=== PATIENT | female | born 1970 | race Caucasian/White ===

== ENCOUNTER 2017-09-17 07:49 | Observation (INO) ==
[2017-09-17 08:07] LABS: Basophils % 0.2 %; Eosinophils # 0.1 K/mcL (0.0-0.6); Eosinophils % 0.7 %; Hematocrit 41.1 % (35.3-44.9); Hemoglobin 14.3 g/dL (11.5-15.4); Immature Granulocytes % 0.5 % (0-4); Lymphocytes # 2.5 K/mcL (0.6-4.6); Lymphocytes % 14.8 %; Mean Corpuscular HGB Conc 34.8 g/dL (31.6-35.5); Mean Corpuscular Hemoglobin 30.6 pg (28.0-33.3); Mean Corpuscular Volume 87.8 fL (83.0-100.0); Mean Platelet Volume 10.7 fL (9.4-12.4); Monocytes # 0.8 K/mcL (0.0-1.3); Monocytes % 4.6 %; Neutrophils # 13.4 K/mcL (1.6-8.9); Platelet Count 253 K/mcL (140-400); Red Blood Count 4.68 M/mcL (3.82-4.97); Red Cell Distribution Width 11.9 % (11.5-14.5); Segmented Neutrophils % 79.2 %
[2017-09-17] MEDS ORDERED: 0.9 % Sodium Chloride 1,000 ML IVC ONE (08:08)
[2017-09-17] MEDS ORDERED: Ondansetron 4 MG/2 ML VIAL IVP ONE (08:08)
[2017-09-17] MEDS ORDERED: *HR* Morphine 2 MG/ML SYRINGE IVP ONE ×3 (08:08→12:01)
--- NOTE | 2017-09-17 08:11 | Emergency Department Note ---
Disposition Clinical Impression: Acute appendicitis Qualifiers: Acute appendicitis type: unspecified acute appendicitis type Qualified Code(s) : K35.80 - Unspecified acute appendicitis Disposition: Admitted As Inpatient Condition: Fair Referrals: María Ramsey DO [Primary Care Provider] - Forms: ED Satisfaction Letter, Work/School Release Time of Disposition: 09:33 Abdominal Pain HPI - General Chief Complaint: ED Abdominal Pain Stated Complaint: RLQ pain Time Seen by Provider: 09/17/17 07:50 Source: patient Mode of arrival: ambulatory Limitations: no limitations Nursing Notes Reviewed: Yes Vital Signs Reviewed: Yes - History of Present Illness HPI Narrative: Nontoxic-appearing 46-year-old female presents for evaluation of right lower quadrant abdominal pain and nausea that began yesterday. He she states the pain has been constant ever since. She denies any vomiting, fever, diarrhea, constipation, urinary symptoms, hematemesis, or hematochezia melena. She denies any known sick contacts or recent foreign travel. She denies any aggravating or alleviating factors for this pain. She states the pain is a constant ache. She states a surgical history that includes a total hysterectomy with bilateral salpingo-oophorectomy. Pt Subjective Complaint: abdominal pain Onset (ago): day(s) (Yesterday) Consistency: constant Location: RLQ Pain Severity: moderate Pain Scale: 5 Quality: aching Radiation: none Migration to: no migration Improves with: nothing Worsens with: nothing Associated symptoms: Reports: nausea. Denies: vomiting, diarrhea, fever, chills , constipation, dysuria, hematemesis, hematochezia, melena, hematuria Treatments prior to arrival: none - Related Data Home Medications Medication Instructions Recorded Confirmed No Known Home Drugs 09/17/17 09/17/17 Allergies Allergy/AdvReac Type Severity Reaction Status Date / Time Cefaclor [From Ceclor] Allergy Anaphylaxis Verified 09/17/17 07:51 meloxicam [From Mobic] Allergy Hives Verified 09/17/17 07:51 Tetracycline Allergy Hives Verified 09/17/17 07:51 All systems ED: reviewed and negative except as stated. Constitutional: Denies: fever, chills, weakness, weight change Eyes: Denies: eye pain, eye discharge, vision change ENT ED: Denies: ear pain, throat pain, dental pain, hearing loss, epistaxis, congestion, dysphagia Cardiovascular: Denies: chest pain, palpitations, dyspnea on exertion, edema, syncope Respiratory: Denies: cough, dyspnea, wheezes, hemoptysis, stridor Gastrointestinal: Reports: as per HPI, abdominal pain, nausea. Denies: vomiting , diarrhea, constipation, hematemesis, melena, hematochezia Genitourinary: Denies: dysuria, frequency, hematuria, discharge Musculoskeletal: Denies: back pain, neck pain, arthralgia, myalgia Integumentary: Denies: rash, abrasion, lesions Neurological: Denies: headache, weakness, numbness, paresthesias, confusion, abnormal gait, vertigo Psychiatric: Denies: anxiety, depression, suicidal thoughts, homicidal thoughts , auditory hallucinations, visual hallucinations Endocrine: Denies: fatigue Hematological/Lymphatic: Denies: easy bleeding, easy bruising Allergic/Immunologic: Denies: facial swelling, urticaria Abdominal Pain PMH - Past Medical History Medical history: Reports: diabetes Female Surgical History: Reports: hysterectomy, other Psychiatric history: Reports: no psych history - Social History Smoking status: Never smoker Alcohol use: Reports: occasionally Drug use: Reports: none Physical Exam - General Limitations: no limitations General appearance: alert, in no apparent distress - Head Head exam: atraumatic, normocephalic, normal inspection - Eye Eye exam: Present: normal appearance, PERRL, EOMI - ENT ENT exam: normal exam, normal oropharynx, mucous membranes moist - Neck Neck exam: Present: normal inspection, full ROM, trachea midline - Chest Chest inspection: Present: normal inspection, symmetric chest wall rise - Respiratory Respiratory exam: Present: normal lung sounds bilaterally. Absent: respiratory distress, wheezes, stridor, accessory muscle use, prolonged expiratory phase - Cardiovascular Cardiovascular exam: Present: regular rate, normal rhythm, normal heart sounds - Abdominal Exam Abdominal exam: Present: soft, tenderness, rebound, normal bowel sounds, Rovsing 's sign, tenderness at McBurney's Point. Absent: distention, guarding, rigidity , organomegaly, psoas sign, obturator sign, heel tap sign, Josue's sign Abdominal tenderness: Present: RLQ, moderate - Extremities Exam Extremities exam: Present: normal inspection, full ROM. Absent: tenderness, pedal edema - Neurological Exam Neurological exam: Present: alert, oriented X3 - Psychiatric Psychiatric exam: Present: normal affect, normal mood - Skin Skin exam: Present: warm, dry, intact, normal color Course Course Narrative: I discussed this patient's case with Dr. Rose. Dr. Rose has had a face-to -face evaluation with the patient. 0925: I spoke with Dr. Devine, general surgeon quarry extraction worker. Dr. Devine will send his nurse practitioner to see the patient in the emergency department. He requests 500 mg of IV piggyback Flagyl and Levaquin. The patient will be admitted for surgical intervention. 1005: Nelia Fried CNP with [facility] has evaluated the patient. Patient will be admitted to the surgical service. Vital Signs Temperature 98.0 F 09/17/17 07:51 Pulse Rate 101 09/17/17 07:51 Respiratory Rate 18 09/17/17 07:51 Blood Pressure 136/87 09/17/17 07:51 O2 Sat by Pulse Oximetry 97 09/17/17 07:51 Temperature 98.0 F 09/17/17 07:51 Pulse Rate 84 09/17/17 09:38 Respiratory Rate 16 09/17/17 09:38 Blood Pressure 127/83 09/17/17 09:38 O2 Sat by Pulse Oximetry 98 09/17/17 09:38 Oxygen Delivery Oxygen Delivery Room Air Abdominal Pain - Medical Records Medical records reviewed: Yes I reviewed the patient's medical records. - Lab Data Lab results reviewed: Yes I reviewed the patient's lab results. Lab results narrative: Laboratory Last Values WBC 16.9 K/mcL (4.3-11.1) H 09/17/17 08:02 RBC 4.68 M/mcL (3.82-4.97) 09/17/17 08:02 Hgb 14.3 g/dL (11.5-15.4) 09/17/17 08:02 Hct 41.1 % (35.3-44.9) 09/17/17 08:02 MCV 87.8 fL (83.0-100.0) 09/17/17 08:02 MCH 30.6 pg (28.0-33.3) 09/17/17 08:02 MCHC 34.8 g/dL (31.6-35.5) 09/17/17 08:02 RDW 11.9 % (11.5-14.5) 09/17/17 08:02 Plt Count 253 K/mcL (140-400) 09/17/17 08:02 MPV 10.7 fL (9.4-12.4) 09/17/17 08:02 Immature Gran % 0.5 % (0-4) 09/17/17 08:02 Seg Neutrophils % 79.2 % 09/17/17 08:02 Lymphocytes % 14.8 % 09/17/17 08:02 Monocytes % 4.6 % 09/17/17 08:02 Eosinophils % 0.7 % 09/17/17 08:02 Basophils % 0.2 % 09/17/17 08:02 Neutrophils # 13.4 K/mcL (1.6-8.9) H 09/17/17 08:02 Lymphocytes # 2.5 K/mcL (0.6-4.6) 09/17/17 08:02 Monocytes # 0.8 K/mcL (0.0-1.3) 09/17/17 08:02 Eosinophils # 0.1 K/mcL (0.0-0.6) 09/17/17 08:02 Basophils # 0.0 K/mcL (0.0-0.2) 09/17/17 08:02 PT 11.0 Seconds (9.4-12.1) 09/17/17 09:36 INR 1.0 09/17/17 09:36 APTT 28.5 Seconds (26.0-36.0) 09/17/17 09:36 Sodium 137 mEq/L (136-145) 09/17/17 08:02 Potassium 4.1 mEq/L (3.5-4.5) 09/17/17 08:02 Chloride 103 mEq/L (98-109) 09/17/17 08:02 Carbon Dioxide 25 mEq/L (19-29) 09/17/17 08:02 BUN 11 mg/dL (7-20) 09/17/17 08:02 Creatinine 0.72 mg/dL (0.57-1.11) 09/17/17 08:02 Est GFR ( Amer) > 60 (> 60) 09/17/17 08:02 Est GFR (Non-Af Amer) > 60 (> 60) 09/17/17 08:02 BUN/Creatinine Ratio 15 (6-26) 09/17/17 08:02 Glucose 207 mg/dL (70-99) H 09/17/17 08:02 Calculated Osmolality 289 (280-300) 09/17/17 08:02 Lactic Acid 1.4 mmol/L (0.5-2.2) 09/17/17 08:02 Calcium 9.4 mg/dL (8.6-10.8) 09/17/17 08:02 Total Bilirubin 0.7 mg/dL (0.2-1.2) 09/17/17 08:02 Direct Bilirubin 0.3 mg/dL (0.0-0.5) 09/17/17 08:02 Indirect Bilirubin 0.4 mg/dL (0.0-1.2) 09/17/17 08:02 AST 17 Units/L (5-34) 09/17/17 08:02 ALT 33 Units/L (0-55) 09/17/17 08:02 Alkaline Phosphatase 56 Units/L (38-126) 09/17/17 08:02 Serum Total Protein 7.6 g/dL (6.0-8.3) 09/17/17 08:02 Albumin 3.9 g/dL (3.5-5.0) 09/17/17 08:02 Globulin 3.7 g/dL (2.4-3.5) H 09/17/17 08:02 Albumin/Globulin Ratio 1.1 (1.1-2.2) 09/17/17 08:02 Amylase 31 Units/L (25-125) 09/17/17 08:02 Lipase 30 Units/L (8-78) 09/17/17 08:02 Urine Color Yellow (Yellow) 09/17/17 08:09 Urine Clarity Clear (Clear) 09/17/17 08:09 Urine pH 7.0 pH Units (5.0-8.0) 09/17/17 08:09 Ur Specific [place] 1.012 (1.010-1.025) 09/17/17 08:09 Urine Protein Negative mg/dL (Neg-Trace) 09/17/17 08:09 Urine Glucose (UA) Normal mg/dL (Normal) 09/17/17 08:09 Urine Ketones Negative mg/dL (Negative) 09/17/17 08:09 Urine Blood Negative (Negative) 09/17/17 08:09 Urine Nitrite Negative (Negative) 09/17/17 08:09 Urine Bilirubin Negative (Negative) 09/17/17 08:09 Urine Urobilinogen Normal mg/dL (Normal) 09/17/17 08:09 Ur Leukocyte Esterase Negative (Negative) 09/17/17 08:09 Ur Culture Indicated? NO (NO) 09/17/17 08:09 Urine Test Negative (Negative) 09/17/17 08:09 Result diagrams: 09/17/17 08:02 09/17/17 08:02 Lab Results 09/17/17 09/17/17 09/17/17 Range/Units 08:02 08:02 08:02 WBC 16.9 H (4.3-11.1) K/mcL RBC 4.68 (3.82-4.97) M/mcL Hgb 14.3 (11.5-15.4) g/dL Hct 41.1 (35.3-44.9) % MCV 87.8 (83.0-100.0) fL MCH 30.6 (28.0-33.3) pg MCHC 34.8 (31.6-35.5) g/dL RDW 11.9 (11.5-14.5) % Plt Count 253 (140-400) K/mcL MPV 10.7 (9.4-12.4) fL Immature Gran % 0.5 (0-4) % Seg Neutrophils % 79.2 % Lymphocytes % 14.8 % Monocytes % 4.6 % Eosinophils % 0.7 % Basophils % 0.2 % Neutrophils # 13.4 H (1.6-8.9) K/mcL Lymphocytes # 2.5 (0.6-4.6) K/mcL Monocytes # 0.8 (0.0-1.3) K/mcL Eosinophils # 0.1 (0.0-0.6) K/mcL Basophils # 0.0 (0.0-0.2) K/mcL PT (9.4-12.1) Seconds INR APTT (26.0-36.0) Seconds Sodium 137 (136-145) mEq/L Potassium 4.1 (3.5-4.5) mEq/L Chloride 103 (98-109) mEq/L Carbon Dioxide 25 (19-29) mEq/L BUN 11 (7-20) mg/dL Creatinine 0.72 (0.57-1.11) mg/dL Est GFR ( Amer) > 60 (> 60) Est GFR (Non-Af Amer) > 60 (> 60) BUN/Creatinine Ratio 15 (6-26) Glucose 207 H (70-99) mg/dL Calculated Osmolality 289 (280-300) Lactic Acid 1.4 (0.5-2.2) mmol/L Calcium 9.4 (8.6-10.8) mg/dL Total Bilirubin 0.7 (0.2-1.2) mg/dL Direct Bilirubin 0.3 (0.0-0.5) mg/dL Indirect Bilirubin 0.4 (0.0-1.2) mg/dL AST 17 (5-34) Units/L ALT 33 (0-55) Units/L Alkaline Phosphatase 56 (38-126) Units/L Serum Total Protein 7.6 (6.0-8.3) g/dL Albumin 3.9 (3.5-5.0) g/dL Globulin 3.7 H (2.4-3.5) g/dL Albumin/Globulin Ratio 1.1 (1.1-2.2) Amylase 31 (25-125) Units/L Lipase 30 (8-78) Units/L Urine Color (Yellow) Urine Clarity (Clear) Urine pH (5.0-8.0) pH Units Ur Specific [place] (1.010-1.025) Urine Protein (Neg-Trace) mg/dL Urine Glucose (UA) (Normal) mg/dL Urine Ketones (Negative) mg/dL Urine Blood (Negative) Urine Nitrite (Negative) Urine Bilirubin (Negative) Urine Urobilinogen (Normal) mg/dL Ur Leukocyte Esterase (Negative) Ur Culture Indicated? (NO) Urine Test (Negative) 09/17/17 09/17/17 09/17/17 Range/Units 08:09 08:09 09:36 WBC (4.3-11.1) K/mcL RBC (3.82-4.97) M/mcL Hgb (11.5-15.4) g/dL Hct (35.3-44.9) % MCV (83.0-100.0) fL MCH (28.0-33.3) pg MCHC (31.6-35.5) g/dL RDW (11.5-14.5) % Plt Count (140-400) K/mcL MPV (9.4-12.4) fL Immature Gran % (0-4) % Seg Neutrophils % % Lymphocytes % % Monocytes % % Eosinophils % % Basophils % % Neutrophils # (1.6-8.9) K/mcL Lymphocytes # (0.6-4.6) K/mcL Monocytes # (0.0-1.3) K/mcL Eosinophils # (0.0-0.6) K/mcL Basophils # (0.0-0.2) K/mcL PT 11.0 (9.4-12.1) Seconds INR 1.0 APTT 28.5 (26.0-36.0) Seconds Sodium (136-145) mEq/L Potassium (3.5-4.5) mEq/L Chloride (98-109) mEq/L Carbon Dioxide (19-29) mEq/L BUN (7-20) mg/dL Creatinine (0.57-1.11) mg/dL Est GFR ( Amer) (> 60) Est GFR (Non-Af Amer) (> 60) BUN/Creatinine Ratio (6-26) Glucose (70-99) mg/dL Calculated Osmolality (280-300) Lactic Acid (0.5-2.2) mmol/L Calcium (8.6-10.8) mg/dL Total Bilirubin (0.2-1.2) mg/dL Direct Bilirubin (0.0-0.5) mg/dL Indirect Bilirubin (0.0-1.2) mg/dL AST (5-34) Units/L ALT (0-55) Units/L Alkaline Phosphatase (38-126) Units/L Serum Total Protein (6.0-8.3) g/dL Albumin (3.5-5.0) g/dL Globulin (2.4-3.5) g/dL Albumin/Globulin Ratio (1.1-2.2) Amylase (25-125) Units/L Lipase (8-78) Units/L Urine Color Yellow (Yellow) Urine Clarity Clear (Clear) Urine pH 7.0 (5.0-8.0) pH Units Ur Specific [place] 1.012 (1.010-1.025) Urine Protein Negative (Neg-Trace) mg/dL Urine Glucose (UA) Normal (Normal) mg/dL Urine Ketones Negative (Negative) mg/dL Urine Blood Negative (Negative) Urine Nitrite Negative (Negative) Urine Bilirubin Negative (Negative) Urine Urobilinogen Normal (Normal) mg/dL Ur Leukocyte Esterase Negative (Negative) Ur Culture Indicated? NO (NO) Urine Test Negative (Negative) - Radiology Data Radiology results reviewed: Yes I reviewed the patient's radiology results. Abdomen/Pelvis CT 09/17/17 08:03 IMPRESSION: Acute appendicitis. No evidence of drainable fluid collection, abscess or pneumoperitoneum. The results were called by Dr. Simón Ackerman MD to Chris Tracy on 09/17/2017 at 09:20. D/ / Simón Ackerman MD / Simón Ackerman MD Interpreting Provider: Simón Ackerman MD Attestation Statement - Attestation Attestation: I, Nilson Rose DO have provided [id number] time during the care of this patient. Detailed review the presentation, symptoms, medical history were discussed and reviewed with the mid-level provider Chris Tracy PA-C/SAS ANALYST. Medical intervention labs and imaging studies were reviewed in detail. See full documentation of physical exam and course of care in the mid-level provider's note. I agree with the determined course of care, medical intervention and disposition put forth by the mid-level provider. See below documentation for changes or alterations in documentation. 46-year-old female presents to emergency room with right lower quadrant abdominal pain that started approximately 2-3 weeks ago. Patient. Umbilical pain that went away without any issue. Yesterday afternoon she had acute onset of periumbilical pain is now migrated to the right lower quadrant or abdomen. She has had anorexia along with fevers and chills. Denies any trauma or injury. She does have point tenderness over the appendix in the right lower quadrant concerning for appendicitis. Labs do show a little white blood cell count CT confirms what appears to be an obstructed fecalith and the appendical apex with dilation distally. Patient will be consult surgery for possible surgical intervention. No other medical issues noted this time. Patient's labs otherwise unremarkable. Disposition will be admission to surgery for definitive management. Antibiotic regimen to be given at this point. Consultation placed to the on-call surgeon Dr. Devine. Recommendation for antibiotic at this point. They will, evaluate emergency room. See detailed documentation of physical exam, medical intervention, medical decision-making and disposition in the mid-level provider's note
[2017-09-17 08:16] LABS: Bilirubin,Urine Negative (Negative); Blood,Urine Negative (Negative); Clarity,Urine Clear (Clear); Color,Urine Yellow (Yellow); Glucose,Urine (UA) Normal (Normal); Ketones,Urine Negative (Negative); Leukocyte Esterase,Urine Negative (Negative); Nitrite,Urine Negative (Negative); Protein,Urine Negative (Neg-Trace); Specific Gravity,Urine 1.012 (1.010-1.025); Urobilinogen,Urine Normal (Normal)
[2017-09-17 08:22] LABS: Alanine Aminotransferase 33 Units/L (0-55); Albumin 3.9 g/dL (3.5-5.0); Albumin/Globulin Ratio 1.1 (1.1-2.2); Alkaline Phosphatase 56 Units/L (38-126); Amylase 31 Units/L (25-125); Aspartate Amino Transferase 17 Units/L (5-34); BUN/Creatinine Ratio 15 (6-26); Bilirubin,Direct 0.3 mg/dL (0.0-0.5); Bilirubin,Indirect 0.4 mg/dL (0.0-1.2); Bilirubin,Total 0.7 mg/dL (0.2-1.2); Blood Urea Nitrogen 11 mg/dL (7-20); Calcium 9.4 mg/dL (8.6-10.8); Carbon Dioxide 25 mEq/L (19-29); Chloride 103 mEq/L (98-109); Globulin 3.7 g/dL (2.4-3.5); Glucose 207 mg/dL (70-99); Lipase 30 Units/L (8-78); Osmolality,Calculated 289 (280-300); Potassium 4.1 mEq/L (3.5-4.5); Sodium 137 mEq/L (136-145); Total Protein 7.6 g/dL (6.0-8.3); eGFR For African Americans > 60 (> 60); eGFR For Non-African Americans > 60 (> 60)
[2017-09-17] MEDS ORDERED: Levofloxacin 500 MG/100 ML 500 MG/100 ML BAG IVPB ONE (09:28)
[2017-09-17] MEDS ORDERED: MetroNIDAZOLE 500 MG/100 ML 500 MG/100 ML BAG IVPB ONE (09:28)
[2017-09-17 09:54] LABS: Activated Partial Thrombo Time 28.5 Seconds (26.0-36.0)
--- NOTE | 2017-09-17 10:29 | General Surg History&Physical ---
<Nelia Fried - Last Filed: 09/17/17 10:25> Date of Encounter: 09/17/17 Time of Encounter: 09:45 Assessment and Plan (1) Acute appendicitis Current Visit: Yes Status: Acute The assessment and plan as outlined above was discussed with the patient and/or family members who expressed understanding and agreement. All questions were answered. Nothing by mouth IV fluids IV antibiotics- Levaquin and Flagyl given in the emergency department Supportive care and pain control Incentive spirometer every 1 hour while awake PPI therapy daily Ambulate hallways 3 times a day with assistance Risks, benefits, alternatives, expected outcomes have been reviewed with the patient she has agreed to proceed to the operating room with Dr. Devine in the next 24 hours for laparoscopic appendectomy- consent has been completed Qualifiers: Acute appendicitis type: with localized peritonitis Qualified Code(s): K35.3 - Acute appendicitis with localized peritonitis (2) DVT prophylaxis Current Visit: Yes Status: Acute The assessment and plan as outlined above was discussed with the patient and/or family members who expressed understanding and agreement. All questions were answered. Ambulate hallways 3 times a day with assistance EPCDs to bilateral lower extremities for DVT prophylaxis History of Present Illness Chief complaint: Abdominal pain HPI: Ms. De Paz is a 46 year old female who presented to the emergency department with complaints of abdominal pain which started at 2 PM yesterday. She states that the pain started suddenly while at work yesterday and was located in the berry-umbilical region. She states that the pain was constant and the severity did continue to progress. She states that she was unable to get any rest last night due to continued pain. The pain did migrate to the right lower quadrant at some point last night. She states that walking aggravates the pain. She states that nothing makes the pain better prior to coming to the hospital. The pain medication administered in the ED has helped to ease the pain now. She states that she did have pain similar to this 2 weeks ago but it did resolve after 6 hours and rest. She does have nausea but denies any vomiting. She denies any changes in bowel habits and states that her last bowel movement was yesterday. She typically has a bowel movement on a daily basis. She admits to chills but states she did not check her temperature. She denies any difficulty with urination. Denies any shortness of breath or chest pains. She does have a CAT scan which shows evidence of acute appendicitis with a fecalith. We have been asked to see and evaluate the patient for recommendations. She last had water to drink at 0530 this morning. She has not had anything to eat since 1830 last evening. 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[employer]) Current living situation: Home - Independent Activity Level: Independent ambulation - Family History Mother Living Status: Still Living Hx Family GI Disorders: Yes (gastroperesis (severe)) Father Living Status: Still Living Sister Living Status: Still Living Hx Family Cancer: Yes (breast cancer at age 49) Grandmother Living Status: Cause of : [place] Hx Family Cardiac Disorders: Yes (LA) Hx Family Cancer: Yes (breast cancer) Medications and Allergies No Known Home Drugs 09/17/17 [History] 3 Allergy/AdvReac Type Severity Reaction Status Date / Time Cefaclor [From Ceclor] Allergy Anaphylaxis Verified 09/17/17 07:51 meloxicam [From Mobic] Allergy Hives Verified 09/17/17 07:51 Tetracycline Allergy Hives Verified 09/17/17 07:51 Review of Systems All systems PM: reviewed and no additional remarkable complaints except as stated (in the HPI) All systems PM: A 10-system review of systems was performed and is negative for pertinent findings except as documented above in the HPI. General Surgery Exam Initial Vital Signs Temp Pulse Resp BP Pulse Ox 98.0 F 101 18 136/87 97 09/17/17 07:51 09/17/17 07:51 09/17/17 07:51 09/17/17 07:51 09/17/17 07:51 - General physical appearance well developed, well nourished, no distress, moderate pain - Eyes normal ocular movement - ENT normal mucosa, atraumatic, normocephalic - Neck trachea midline - Respiratory normal respiratory effort, clear to auscultation - Cardiovascular Cardiovascular exam: Present: RRR - Abdomen Abdomen general surgery: Present: bowel sounds present, soft, tender Abdominal Tenderness: Present: RLQ, suprapubic - Integumentary Integumentary general surgery: Present: warm and dry - Neurologic Present: CN 2-12 grossly intact - Psychiatric Psychiatric general surgery: Present: appropriate, oriented to person, oriented to place, oriented to time, speech is normal, memory intact Results - Labs 09/17/17 08:02 09/17/17 08:02 Abnormal lab results WBC 16.9 K/mcL (4.3-11.1) H 09/17/17 08:02 Neutrophils # 13.4 K/mcL (1.6-8.9) H 09/17/17 08:02 Glucose 207 mg/dL (70-99) H 09/17/17 08:02 Globulin 3.7 g/dL (2.4-3.5) H 09/17/17 08:02 All other labs normal. - Imaging CT scan - abdomen: report reviewed CT scan - pelvis: report reviewed Additional studies: Abdomen/Pelvis CT 09/17/17 08:03 IMPRESSION: Acute appendicitis. No evidence of drainable fluid collection, abscess or pneumoperitoneum. The results were called by Dr. Simón Ackerman MD to Chris Tracy on 09/17/2017 at 09:20. D/ / Simón Ackerman MD / Simón Ackerman MD Interpreting Provider: Simón Ackerman MD - Attending Attestation For this encounter, I have reviewed the [employer]KE [employer] or PA documentation, treatment plan, and medical decision making; and I have had face to face time with this patient. <Yash Devine - Last Filed: 09/17/17 12:18> Date of Encounter: 09/17/17 History of Present Illness HPI: Ms. De Paz is a 46 year old female Review of Systems All systems PM: A 10-system review of systems was performed and is negative for pertinent findings except as documented above in the HPI. General Surgery Exam Initial Vital Signs Temp Pulse Resp BP Pulse Ox 98.0 F 101 18 136/87 97 09/17/17 07:51 09/17/17 07:51 09/17/17 07:51 09/17/17 07:51 09/17/17 07:51 Results - Labs 09/17/17 08:02 09/17/17 08:02 Abnormal lab results WBC 16.9 K/mcL (4.3-11.1) H 09/17/17 08:02 Neutrophils # 13.4 K/mcL (1.6-8.9) H 09/17/17 08:02 Glucose 207 mg/dL (70-99) H 09/17/17 08:02 Globulin 3.7 g/dL (2.4-3.5) H 09/17/17 08:02 All other labs normal. - Attending Attestation I reviewed the above history and physical and agree with the above. Noted pain since yesterday; periumbilical and now RLQ. Pain on physical examination. Noted leukocytosis and CT scan showing acute appendicitis. Will plan on a laparoscopic appendectomy today. Discussed with the patient and family and they agree to the above plan.
[2017-09-17] MEDS ORDERED: Ondansetron 4 MG/2 ML VIAL IVP PRN ×3 (10:35→17:13)
[2017-09-17] MEDS ORDERED: Naloxone 0.4 MG/ML INJ IVP PRN ×2 (10:35→17:13)
[2017-09-17] MEDS ORDERED: *HR* OxyCODONE/APAP 5/325 TABLET PO PRN (10:38)
[2017-09-17] MEDS ORDERED: Acetaminophen 325 MG TABLET PO PRN ×2 (10:38→17:13)
[2017-09-17] MEDS ORDERED: *HR* HYDROmorphone (PF) 1 MG/ML SYRINGE IVP PRN (10:38)
[2017-09-17] MEDS ORDERED: 0.9 % Sodium Chloride 1,000 ML IVC SCH (10:45)
--- NOTE | 2017-09-17 14:32 | Anesthesia Evaluation PreOp ---
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: Denies Any Significant HX Other Medical History: Denies Any Significant HX, Diabetes Type II (Previous diagnosis, not currently, elevated glucose on BMP), Other (Obesity) Anesthesia History: No Prior Anesthetic Complications, Past Anesthesia (Hyst, other) : No Alcohol Use: occasionally Drug use: none Medications and Allergies No Known Home Drugs 09/17/17 [History] 3 Allergy/AdvReac Type Severity Reaction Status Date / Time Cefaclor [From Ceclor] Allergy Anaphylaxis Verified 09/17/17 07:51 meloxicam [From Mobic] Allergy Hives Verified 09/17/17 07:51 Tetracycline Allergy Hives Verified 09/17/17 07:51 - Meds/Allergy Pre-op Review Medications Reviewed: Yes Allergies Reviewed: Yes Beta Blockers on Current Med List: No Anesthesia Results - Labs 09/17/17 08:02 09/17/17 08:02 Anesthesia Exam Vital Signs/O2 Sat/Glucose, Most Recent Temp Pulse Resp BP Pulse Ox 98.8 F 73 16 107/70 97 09/17/17 12:30 09/17/17 12:30 09/17/17 12:30 09/17/17 12:30 09/17/17 12:30 Blood Glucose* 149 Height: 62 in Weight: 82 Kg BMI: 33 - HEENT Mallampati: I Teeth: Normal (Broken #14) Oral Opening: Greater than 3 - Cardiac Rhythm: Regular - Pulmonary Breath Sounds: bilateral Clear Anesthesia Assess/Plan ASA Score: 2 Anesthetic Plan: General Monitoring Plan: Standard Monitors Recovery Plan: PACU Anes Supervising Prov Stmt: I have participated in the evaluation of this patient. Patient informed and consented. Risks, benefits, and alternatives discussed. Patient wishes to proceed.
[2017-09-17] MEDS ORDERED: *HR* Succinylcholine 200 MG/10 ML VIAL IVP ONE (15:09)
[2017-09-17] MEDS ORDERED: Lidocaine -MPF 2% 2 ML VIAL ONE (15:09)
[2017-09-17] MEDS ORDERED: *HR* Propofol 200 MG/20 ML VIAL IVP ONE (15:09)
[2017-09-17] MEDS ORDERED: *HR* Rocuronium Bromide 50 MG/5 ML VIAL ONE (15:09)
[2017-09-17] MEDS ORDERED: *HR* Midazolam HCl 2 MG/2 ML VIAL ONE ×2 (15:09)
[2017-09-17] MEDS ORDERED: *HR* FentaNYL (PF) 100 MCG/2 ML VIAL ONE (15:09)
[2017-09-17] MEDS ORDERED: Ondansetron 4 MG/2 ML VIAL ONE (15:09)
[2017-09-17] MEDS ORDERED: Dexamethasone 4 MG/ML VIAL ONE (15:09)
[2017-09-17] MEDS ORDERED: Neostigmine Methylsulfate 3 MG/3 ML SYRINGE ONE (15:10)
[2017-09-17] MEDS: *HR* HYDROmorphone (PF) 1 MG/ML SYRINGE IVP PRN ×4 (15:57→20:39)
--- NOTE | 2017-09-17 16:06 | Operative Note ---
Date of procedure: 09/17/17 Pre-op diagnosis: Acute appendicitis Post-op diagnosis: same Procedure: Laparoscopic appendectomy Anesthesia: IDANIA Surgeon: Yash Devine Ski [employer] Director: Winter Garcia Estimated blood loss (cc): 20 Specimen: appendix Condition: stable Disposition: PACU Procedure in Detail: Date of surgery: 09/17/17 After properly identifying the patient, the patient was brought to the operating room and placed in the supine position. After proper IV sedation was achieved followed by general endotracheal intubation, the patient's abdomen was prepped and draped in normal sterile fashion. A timeout was performed noting the patient's name and type of procedure to be performed. An supraumbilical incision with an 11 blade scalpel was made down to the level of the rectus fascia. Once the rectus fascia was incised the abdomen was entered and a 12 mm port was placed to the incision. The abdomen was insufflated with carbon dioxide and a laparoscopic camera was placed to the port which showed no injury to the intra-abdominal organs upon entry. A suprapubic 5 mm port and a left lower quadrant 5 mm port was then placed under direct camera visualization. The right lower quadrant was examined and the entire appendix appeared to be enlarged and inflammed, consistent with acute appendicitis. The appendix was grasped with a non traumatic grasper and was retracted medially. The lateral attachments from the cecum to the sidewall were dissected with Bovie cauterization. The base of the appendix was dissected away from the mesentery with a laparoscopic [place] dissector. The base of the appendix and the mesentery was then transected with a laparoscopic ROSI stapler. The appendix was removed from the abdomen via an Endobag. Reinspection of the staple line demonstrated maintenance of hemostasis and the right lower quadrant and pelvis were irrigated with normal saline solution until the effluent was clear. The right lower quadrant was again reinspected for hemostasis and visualization of the staple line showed no evidence of bleeding. The abdomen was desufflated and all ports were then removed from the abdomen. The rectus fascia for the supraumbilical incision was reapproximated with a [id number] Vicryl suture. The subcutaneous tissue was reapproximated with interrupted 3-0 Vicryl sutures and the epidermal and dermal layers for the remaining incisions were closed with 4-0 Monocryl sutures. Needle, sponge, and instrument counts were correct 2 and the incisions were covered with Steri- Strips and Band-Aids. The patient was aroused from IV sedation, extubated in the operating room without complication, and transported to the recovery room in stable condition.
[2017-09-17] MEDS ORDERED: Gabapentin 300 MG CAPSULE PO ONE ×2 (16:16→16:45)
[2017-09-17] MEDS ORDERED: Acetaminophen IV 1,000 MG/100 ML INFUS..BTL IVPB ONE (16:19)
[2017-09-17] MEDS ORDERED: Ringers Solution, Lactated 1,000 ML ONE (16:48)
[2017-09-17] MEDS ORDERED: MetroNIDAZOLE 500 MG/100 ML 500 MG/100 ML BAG IVPB SCH (17:00)
[2017-09-17] MEDS: 0.9 % Sodium Chloride 1,000 ML IVC SCH (18:25)
[2017-09-17] MEDS: *HR* OxyCODONE/APAP 5/325 TABLET PO PRN (18:25)
[2017-09-18] MEDS: MetroNIDAZOLE 500 MG/100 ML 500 MG/100 ML BAG IVPB SCH ×2 (01:20→08:51)
[2017-09-18 03:43] LABS: Basophils % 0.1 %; Hematocrit 34.3 % (35.3-44.9); Immature Granulocytes % 0.6 % (0-4); Lymphocytes # 0.9 K/mcL (0.6-4.6); Lymphocytes % 6.6 %; Mean Corpuscular HGB Conc 33.8 g/dL (31.6-35.5); Mean Corpuscular Hemoglobin 30.8 pg (28.0-33.3); Mean Platelet Volume 11.4 fL (9.4-12.4); Monocytes # 0.4 K/mcL (0.0-1.3); Neutrophils # 12.8 K/mcL (1.6-8.9); Platelet Count 189 K/mcL (140-400); Red Blood Count 3.77 M/mcL (3.82-4.97); Segmented Neutrophils % 89.7 %
[2017-09-18 03:44] LABS: Hemoglobin 11.6 g/dL (11.5-15.4)
[2017-09-18] MEDS: *HR* HYDROmorphone (PF) 1 MG/ML SYRINGE IVP PRN ×2 (05:40→09:59)
[2017-09-18 06:58] VITALS: BP 100/63
[2017-09-18] MEDS: 0.9 % Sodium Chloride 1,000 ML IVC SCH (07:21)
[2017-09-18] MEDS: *HR* OxyCODONE/APAP 5/325 TABLET PO PRN (07:23)
--- NOTE | 2017-09-18 10:51 | Discharge Summary ---
Date of Encounter: 09/18/17 Time of Encounter: 10:30 - Discharge Diagnosis (1) Acute appendicitis Priority: Primary Status: Resolved Qualifiers: Acute appendicitis type: with localized peritonitis Qualified Code(s): K35.3 - Acute appendicitis with localized peritonitis - Discharge Medications Prescriptions: OxyCODONE/APAP 7.5/325 [Percocet 7.5/325 MG] 1 each PO Q4HR PRN #30 tablet PRN Reason: Pain Ibuprofen [Motrin] 800 mg PO Q8HR #50 tablet Amoxicillin/Clavulanate [Augmentin] 875 mg PO BIDWM #10 tablet Home Medications: Amoxicillin/Clavulanate [Augmentin] 875 mg PO BIDWM #10 tablet 09/18/17 [Rx] Ibuprofen [Motrin] 800 mg PO Q8HR #50 tablet 09/18/17 [Rx] OxyCODONE/APAP 7.5/325 [Percocet 7.5/325 MG] 1 each PO Q4HR PRN #30 tablet 09/18 [Rx] Allergies/Adverse Reactions: 3 Allergy/AdvReac Type Severity Reaction Status Date / Time Cefaclor [From Ceclor] Allergy Anaphylaxis Verified 09/17/17 07:51 meloxicam [From Mobic] Allergy Hives Verified 09/17/17 07:51 Tetracycline Allergy Hives Verified 09/17/17 07:51 General Surgery Exam Initial Vital Signs Temp Pulse Resp BP Pulse Ox 98.0 F 101 18 136/87 97 09/17/17 07:51 09/17/17 07:51 09/17/17 07:51 09/17/17 07:51 09/17/17 07:51 - General physical appearance well developed, well nourished, no distress - Eyes normal ocular movement - ENT normal mucosa, atraumatic, normocephalic - Neck trachea midline - Respiratory normal respiratory effort, clear to auscultation - Cardiovascular Cardiovascular exam: Present: RRR - Abdomen Abdomen general surgery: Present: bowel sounds present, soft, tender (Expected postoperative tenderness) - Incision Incision: Present: clean and dry, intact - Integumentary Integumentary general surgery: Present: warm and dry - Neurologic Present: CN 2-12 grossly intact - Musculoskeletal Present: normal gait, normal posture - Psychiatric Psychiatric general surgery: Present: appropriate, oriented to person, oriented to place, oriented to time, speech is normal, memory intact Date of admission: 09/17/17 10:12 Primary care physician: Moo Luna Discharging clinician: Yash Devine (Eduardo Fried) Anticipated date of discharge: 09/18/17 - Patient Status Disposition: Home, Self-Care Condition: Good Functional capacity at discharge: independent ambulation Overall status at discharge: patient is progressing back to baseline - Discharge Instructions Follow Up With: María Ramsey DO [Primary Care Provider] - Nelia Fried [employer]ING [employer]ATING MECH[employer]IC [Advanced Practice Nurse] - 09/26/17 8:30 am (Surgery follow-up) Forms: Work/School Release Additional Instructions: #1 may shower 09/19/17, no tub bath for 2 weeks #2 wash incisions with soap and water and pat dry daily #3 no lifting, pushing, pulling more than 15 pounds for the next 2 weeks #4 no driving until off narcotics for 24 hours and able to safely react in the car #5 may climb stairs - Diet and Activity Activity: other (See additional instructions above) Diet: advance to your usual diet - Hospital Course Hospital course: Ms. De Paz is a 46 year old female presented to the hospital with acute onset of abdominal pain. She was found to have acute appendicitis verified with CAT scan. She was started on IV antibiotics and supportive care. She was taken to the operating room for laparoscopic appendectomy with Dr. Devine. On postoperative day #1, she states that her pain is much better. She is tolerating a diet without nausea or vomiting. Her vital signs are stable and she is a febrile. She is voiding and ambulate without difficulty. We will begin discharge planning to home and plan for outpatient follow-up in the next 7 -10 days. - Time Spent with Patient Total time spent providing and/or coordinating discharge services: Less than 30 minutes Labs on day of discharge: Labs from last 24 hours 09/18/17 09/17/17 03:04 12:35 WBC 14.3 H RBC 3.77 L Hgb 11.6 D Hct 34.3 L MCV 91.0 MCH 30.8 MCHC 33.8 RDW 12.0 Plt Count 189 MPV 11.4 Immature Gran % 0.6 Seg Neutrophils % 89.7 Lymphocytes % 6.6 Monocytes % 3.0 Eosinophils % 0.0 Basophils % 0.1 Neutrophils # 12.8 H Lymphocytes # 0.9 Monocytes # 0.4 Eosinophils # 0.0 Basophils # 0.0 POC Glucose 149 H - Attending Attestation For this encounter, I have reviewed the WEDGER MACHINE or PA documentation, treatment plan, and medical decision making; and I have had face to face time with this patient.
[2017-09-18] MEDS ORDERED: *HR* Heparin 5,000 UNIT/ML VIAL SQ SCH (18:00)
== END 2017-09-18 12:26 | disposition home or self-care (01) ==
LOC: EMEROO 07:49 → 3ANU 07:49
PROVIDERS: ADMIT Surgery; ATTEND Surgery